=== PATIENT | male | born 1990 | race African-American/Black ===

== ENCOUNTER 2022-09-24 12:30 | Emergency (ER) | payer MEDICAID ==
[~2022-09-24] VITALS: Ht 182.9 cm; Wt 61.7 kg
[2022-09-24] MEDS ORDERED: FLUORESCEIN SOD OPTH TEST STRIP RIGHTEYE ONE (16:15)
[2022-09-24] MEDS ORDERED: TETRACAINE HCL 0.5% OPTH(EYE) SOLN 4ML RIGHTEYE ONE (16:15)
[2022-09-24 16:52] VITALS: BP 134/80
[2022-09-24] MEDS ORDERED: IBUP600T28 PO (17:31)
[2022-09-24] MEDS ORDERED: ERY05OO OP (17:31)
== END 2022-09-24 17:51 | disposition home or self-care (01) ==
LOC: ER 12:30
DX: S05.01XA Injury of conjunctiva and corneal abrasion without foreign body, right eye, initial encounter (principal); X58.XXXA Exposure to other specified factors, initial encounter; Y93.89 Activity, other specified; Y92.89 Other specified places as the place of occurrence of the external cause; Y99.8 Other external cause status